=== PATIENT | female | born 1945 | race Asian ===

== ENCOUNTER 2017-01-15 04:26 | Inpatient (IN) | payer OTHER ==
[~2017-01-15] VITALS: Ht 160 cm; Wt 54.5 kg
[2017-01-15 05:36] LABS: CHLORIDE 95 mEq/L (99-109); POTASSIUM 3.5 mEq/L (3.7-5.4); SODIUM 131 mEq/L (136-147)
[2017-01-15 05:37] LABS: GLUCOSE 173 mg/dL (70-99)
[2017-01-15 05:43] LABS: ANION GAP 14 MEQ/L (2-14); GFR ESTIMATE (CALCULATED) > 59 mL/min/; UREA NITROGEN (BUN) 8 mg/dL (9-23)
[2017-01-15 05:45] LABS: HEMATOCRIT 28.3 % (36.0-46.0); MCH 28.6 PG (29.0-34.0); MCHC 33.2 G/DL (30.0-36.0); MEAN PLAT.VOLUME 9.7 uM^3 (9.5-12.4); PLATELET COUNT 461 K/uL (156-360); RBC DIS.WIDTH-CV 12.9 % (11.8-14.6); RBC DIS.WIDTH-SD 40.7 % (39-53); RED BLOOD COUNT 3.29 M/uL (3.80-5.20)
[2017-01-15 05:48] LABS: TROP-I INTERPRETATION NEGATIVE; TROPONIN-I < 0.01 ng/mL (0.0-0.30)
[2017-01-15 05:52] LABS: TOTAL BILIRUBIN 0.5 mg/dL (0.0-1.0)
[2017-01-15 05:53] LABS: ALKALINE PHOSPHATASE 54 IU/L (3-129)
[2017-01-15 05:55] LABS: D-DIMER ELISA 0.38 mg/L FEU (< 0.57)
[2017-01-15 05:56] LABS: DIRECT BILIRUBIN 0.3 mg/dL (0.0-0.3)
[2017-01-15 05:57] LABS: LIPASE 26 U/L (1.0-51.0)
[2017-01-15] MEDS ORDERED: METOPROLOL TART25 MG PO (09:16)
[2017-01-15] MEDS ORDERED: NORVASC2.5 MG PO (09:17)
[2017-01-15] MEDS ORDERED: METFORMIN HCL1000 MG PO (09:18)
[2017-01-15] MEDS ORDERED: METFORMIN HCL500 MG PO (09:19)
[2017-01-15] MEDS ORDERED: ROWEEPRA500 MG PO (09:20)
[2017-01-15] MEDS ORDERED: B-1100 MG PO (09:21)
[2017-01-15] MEDS ORDERED: B-COMPLEX-VITA1 EACH PO (09:23)
[2017-01-15] MEDS ORDERED: PROTONIX40 MG PO (09:24)
[2017-01-15] MEDS ORDERED: CALCIUM 500 MG1 EACH PO (09:25)
[2017-01-15] MEDS ORDERED: ASPIRIN81 M2 PO (09:26)
[2017-01-15] MEDS ORDERED: ATORVASTATIN CA40 MG PO (09:26)
[2017-01-15] MEDS ORDERED: ACID CONTROL150 MG PO (09:27)
[2017-01-15 11:33] LABS: ABSOLUTE RETICULOCYTE CT. 0.1 M/uL (0.02-0.08); IMM.RETIC FRACTION 11.9 % (3-19); RETIC HGB EQUIVALENT 29.4 (28-36); RETICULOCYTE COUNT 2.3 % (0.5-1.8)
[2017-01-15 11:54] LABS: TROP-I INTERPRETATION NEGATIVE; TROPONIN-I < 0.01 ng/mL (0.0-0.30)
[2017-01-15 12:03] LABS: POINT-OF-CARE METER ID UU14100415
[2017-01-15 12:19] LABS: IRON 28 MCG/DL (35-150)
[2017-01-15 12:34] LABS: FERRITIN 14 NG/ML (10-291)
[2017-01-15] MEDS ORDERED: THIAMINE HCL100 MG PO (14:29)
[2017-01-15 15:24] VITALS: BP 174/79
[2017-01-15 17:04] LABS: POINT-OF-CARE METER ID UU13113700
[2017-01-15 17:09] LABS: TROP-I INTERPRETATION NEGATIVE; TROPONIN-I < 0.01 ng/mL (0.0-0.30)
[2017-01-15 18:09] LABS: ADD MIUA? NO; BILIRUBIN NEGATIVE; BLOOD NEGATIVE; COLOR STRAW ((YELLOW)); GLUCOSE (STRIP) 50; KETONES NEGATIVE; LEUKOCYTES NEGATIVE; NITRITE NEGATIVE; PROTEIN (STRIP) NEGATIVE; SPECIFIC GRAVITY 1.003 (1.000-1.030); UCUL ADDED? NO; UROBILINOGEN 0.2 MG/DL (0.2-1.0)
[2017-01-15 20:00] VITALS: BP 124/65
[2017-01-16 00:58] VITALS: BP 141/64
[2017-01-16 04:26] VITALS: BP 133/63
[2017-01-16 06:02] LABS: HEMATOCRIT 28.3 % (36.0-46.0); MCH 28.2 PG (29.0-34.0); MCHC 32.9 G/DL (30.0-36.0); MCV 85.8 FL (83-99); MEAN PLAT.VOLUME 9.7 uM^3 (9.5-12.4); PLATELET COUNT 393 K/uL (156-360); RBC DIS.WIDTH-SD 40.6 % (39-53); WHITE BLOOD COUNT 6.1 K/uL (4.1-10.2)
[2017-01-16 06:25] LABS: ALKALINE PHOSPHATASE 50 IU/L (3-129); ANION GAP 7 MEQ/L (2-14); CHLORIDE 95 MEQ/L (99-109); GFR ESTIMATE (CALCULATED) > 59 mL/min/; GLUCOSE 148 mg/dL (70-99); SAMPLE HEMOLYSIS CHECK 1; SAMPLE ICTERIC CHECK 0; SAMPLE LIPEMIA CHECK 0; SODIUM 130 MEQ/L (136-147); TOTAL BILIRUBIN 0.5 MG/DL (0.0-1.0); UREA NITROGEN (BUN) 7 mg/dL (9-23)
[2017-01-16 06:28] LABS: POTASSIUM 4.6 MEQ/L (3.7-5.4)
[2017-01-16 07:26] LABS: NO-CHARGE AST (GOT) 92 IU/L (15-37); POTASSIUM 4.5 MEQ/L (3.7-5.4)
[2017-01-16 09:34] VITALS: BP 126/59
[2017-01-16 11:14] VITALS: BP 121/57
[2017-01-16 15:37] VITALS: BP 109/57
[2017-01-16 19:00] VITALS: BP 146/82
[2017-01-17 01:11] VITALS: BP 134/64
[2017-01-17 04:00] VITALS: BP 146/75
[2017-01-17 06:10] LABS: ALKALINE PHOSPHATASE 48 IU/L (3-129); ANION GAP 10 MEQ/L (2-14); CHLORIDE 91 MEQ/L (99-109); GFR ESTIMATE (CALCULATED) > 59 mL/min/; GLUCOSE 159 mg/dL (70-99); POTASSIUM 4.3 MEQ/L (3.7-5.4); SAMPLE HEMOLYSIS CHECK 0; SAMPLE ICTERIC CHECK 0; SAMPLE LIPEMIA CHECK 0; SODIUM 125 MEQ/L (136-147); TOTAL BILIRUBIN 0.4 MG/DL (0.0-1.0); UREA NITROGEN (BUN) 10 mg/dL (9-23)
[2017-01-17 08:48] VITALS: BP 127/64
[2017-01-17 10:43] LABS: HBSG INDEX 0.24
[2017-01-17 10:44] LABS: ANTI-HEPATITIS A VIRUS (IGM) Nonreactive; HAV INDEX 0.19
[2017-01-17 10:45] LABS: ANTI-HEPATITIS B CORE (IGM) Nonreactive; HBC IgM INDEX 0.06
[2017-01-17 11:27] LABS: POC NON-PRINT COM 1 ND
[2017-01-17 12:17] LABS: HPCA INDEX 12.85
[2017-01-17 13:03] VITALS: BP 126/60
[2017-01-17 15:05] VITALS: BP 126/60
[2017-01-17 15:05] LABS: ANION GAP 8 MEQ/L (2-14); CHLORIDE 90 MEQ/L (99-109); GFR ESTIMATE (CALCULATED) > 59 mL/min/; POTASSIUM 3.9 MEQ/L (3.7-5.4); SAMPLE HEMOLYSIS CHECK 0; SAMPLE ICTERIC CHECK 0; SAMPLE LIPEMIA CHECK 0; SODIUM 123 MEQ/L (136-147); UREA NITROGEN (BUN) 9 mg/dL (9-23)
[2017-01-17 15:13] LABS: GLUCOSE 271 mg/dL (70-99)
[2017-01-17 17:06] LABS: POINT-OF-CARE METER ID UU13113831
[2017-01-17 21:13] LABS: POINT-OF-CARE METER ID UU13113700
[2017-01-17 22:30] VITALS: BP 145/69
[2017-01-18 03:53] VITALS: BP 160/66
[2017-01-18 08:36] VITALS: BP 117/49
[2017-01-18 09:09] LABS: MCH 28.5 PG (29.0-34.0); MCHC 33.4 G/DL (30.0-36.0); MCV 85.3 FL (83-99); MEAN PLAT.VOLUME 9.9 uM^3 (9.5-12.4); PLATELET COUNT 425 K/uL (156-360); RBC DIS.WIDTH-CV 12.9 % (11.8-14.6); RBC DIS.WIDTH-SD 39.7 % (39-53); WHITE BLOOD COUNT 4.6 K/uL (4.1-10.2)
[2017-01-18 09:41] LABS: ALKALINE PHOSPHATASE 59 IU/L (3-129); ANION GAP 7 MEQ/L (2-14); CHLORIDE 101 MEQ/L (99-109); DIRECT BILIRUBIN 0.2 mg/dL (0.0-0.3); GFR ESTIMATE (CALCULATED) > 59 mL/min/; GLUCOSE 141 mg/dL (70-99); POTASSIUM 4.3 MEQ/L (3.7-5.4); SAMPLE HEMOLYSIS CHECK 0; SAMPLE ICTERIC CHECK 0; SAMPLE LIPEMIA CHECK 0; SODIUM 134 MEQ/L (136-147); TOTAL BILIRUBIN 0.5 MG/DL (0.0-1.0); UREA NITROGEN (BUN) 5 mg/dL (9-23)
[2017-01-18 11:34] LABS: POINT-OF-CARE METER ID UU14174225
[2017-01-18 12:01] VITALS: BP 153/63
[2017-01-18 15:17] LABS: POINT-OF-CARE METER ID UU14188625
[2017-01-18 15:22] VITALS: BP 134/62
[2017-01-18 16:40] LABS: ANION GAP 9 MEQ/L (2-14); CHLORIDE 98 MEQ/L (99-109); GFR ESTIMATE (CALCULATED) > 59 mL/min/; GLUCOSE 138 mg/dL (70-99); SAMPLE HEMOLYSIS CHECK 0; SAMPLE ICTERIC CHECK 0; SAMPLE LIPEMIA CHECK 0; SODIUM 131 MEQ/L (136-147); UREA NITROGEN (BUN) 5 mg/dL (9-23)
[2017-01-18 20:41] VITALS: BP 130/63
[2017-01-19 00:07] VITALS: BP 143/71
[2017-01-19 04:13] VITALS: BP 140/63
[2017-01-19 07:44] VITALS: BP 176/71
[2017-01-19 08:29] LABS: POINT-OF-CARE METER ID UU14188625
[2017-01-19 09:04] LABS: EOSINOPHIL (%) 0.8 % (0-5); HEMATOCRIT 28.7 % (36.0-46.0); IMMATURE GRANULOCYTE (%) 0.4 % (0.0-0.7); INSTRUMENT ABS NEUTROPHIL CT 2.4 K/uL; LYMPHOCYTE COUNT 1.9 K/uL (1.0-2.8); MCH 28.9 PG (29.0-34.0); MCHC 33.8 G/DL (30.0-36.0); MCV 85.4 FL (83-99); MEAN PLAT.VOLUME 9.9 uM^3 (9.5-12.4); MONOCYTE COUNT 0.7 K/uL (0-0.8); NEUTROPHIL (%) 47.6 % (45-76); NEUTROPHIL COUNT 2.4 K/uL (1.8-6.4); PLATELET COUNT 407 K/uL (156-360); RBC DIS.WIDTH-SD 40.5 % (39-53); RED BLOOD COUNT 3.36 M/uL (3.80-5.20); WHITE BLOOD COUNT 5.1 K/uL (4.1-10.2)
[2017-01-19 09:25] LABS: ALKALINE PHOSPHATASE 54 IU/L (3-129); ANION GAP 7 MEQ/L (2-14); CHLORIDE 102 MEQ/L (99-109); GFR ESTIMATE (CALCULATED) > 59 mL/min/; GLOBULINS 3.2 G/DL (2.3-3.5); GLUCOSE 116 mg/dL (70-99); POTASSIUM 3.9 MEQ/L (3.7-5.4); SAMPLE HEMOLYSIS CHECK 0; SAMPLE ICTERIC CHECK 0; SAMPLE LIPEMIA CHECK 0; SODIUM 135 MEQ/L (136-147); TOTAL BILIRUBIN 0.5 MG/DL (0.0-1.0); UREA NITROGEN (BUN) 5 mg/dL (9-23)
[2017-01-19 10:44] LABS: HCV RNA (LOG IU/mL) 6.55 (<1.18)
[2017-01-19 11:34] VITALS: BP 135/68
[2017-01-19 17:01] LABS: POINT-OF-CARE METER ID UU13113694; POINT-OF-CARE USER ID AHSUCAJR
[2017-01-19 18:13] LABS: POINT-OF-CARE METER ID UU13113819
[2017-01-19 20:18] VITALS: BP 143/65
[2017-01-20 01:08] VITALS: BP 131/66
[2017-01-20 04:19] VITALS: BP 136/58
[2017-01-20 08:08] VITALS: BP 148/98
[2017-01-20 11:33] VITALS: BP 140/90
[2017-01-20 12:09] LABS: POINT-OF-CARE METER ID UU14188625
[2017-01-20] MEDS ORDERED: PROTONIX40 MG PO (12:31)
[2017-01-20] MEDS ORDERED: MIRALAX255 GM PO (13:23)
[2017-01-20 14:18] LABS: ALBUMIN 3.01 G/DL (3.6-4.9); ALBUMIN PERCENT 47.7 %; ALPHA-1 GLOBULIN 0.23 G/DL (0.15-0.40); ALPHA-1 PERCENT 3.7 %; ALPHA-2 GLOBULIN 0.76 G/DL (0.45-0.85); ALPHA-2 PERCENT 12.1 %; BETA PERCENT 13.1 %; GAMMA PERCENT 23.4 %
[2017-01-20 14:56] VITALS: BP 140/95
[2017-01-20 16:32] LABS: POINT-OF-CARE METER ID UU14188625
== END 2017-01-20 18:54 | disposition home or self-care (01) | DRG 313 ==
LOC: EME 04:26 → EDBD 08:20 → EDOF 08:20 → 5WEST 08:20 → EDOF 08:20 → 5WEST 15:12 → 5SOUTH 01-17 08:07
PROVIDERS: Hospitalist; Internal Medicine; Internal Medicine Nephrology; Nurse Practitioner Adult Health; Specialist
PROC: 0DB68ZX Excision of Stomach, Via Natural or Artificial Opening Endoscopic, Diagnostic (ICD-10-PCS; principal; 2017-01-19)
DX: R07.89 Other chest pain (principal); K92.1 Melena; E87.1 Hypo-osmolality and hyponatremia; E87.6 Hypokalemia; E78.2 Mixed hyperlipidemia; E11.42 Type 2 diabetes mellitus with diabetic polyneuropathy; D50.0 Iron deficiency anemia secondary to blood loss (chronic); H40.9 Unspecified glaucoma; D47.3 Essential (hemorrhagic) thrombocythemia; E11.39 Type 2 diabetes mellitus with other diabetic ophthalmic complication; I10 Essential (primary) hypertension; I44.7 Left bundle-branch block, unspecified; R79.89 Other specified abnormal findings of blood chemistry; K31.7 Polyp of stomach and duodenum; K29.70 Gastritis, unspecified, without bleeding; K22.4 Dyskinesia of esophagus
CPT/HCPCS: 71020; 74183; 76705; 78452; 80048; 80048 91; 80053; 80076; 81003; 82272; 82607; 82728; 82747 90; 82948; 83540; 83690; 83880; 83930; 83935; 84165; 84295; 84300; 84466; 84484; 84999; 85025; 85027; 85045; 85379; 86705; 86709; 86803; 87340; 87522 90; 87902 90; 88305; 88342 TC; 93005; 93017; 99281; 99285; A9500; G0378; J1650; J1815; J2270; J2785; J7030; J7042

== ENCOUNTER 2017-05-22 08:59 | Inpatient (IN) | payer OTHER ==
[~2017-05-22] VITALS: Ht 147.3 cm; Wt 40.8 kg
[~2017-05-22 08:59] MED LIST: ACID CONTROL150 MG PO; ASPIRIN81 M2 PO; ATORVASTATIN CA40 MG PO; B-1100 MG PO; B-COMPLEX-VITA1 EACH PO; CALCIUM 500 MG1 EACH PO; METFORMIN HCL1000 MG PO; METFORMIN HCL500 MG PO; METOPROLOL TART25 MG PO; MIRALAX255 GM PO; NORVASC2.5 MG PO; PROTONIX40 MG PO; ROWEEPRA500 MG PO; THIAMINE HCL100 MG PO
[2017-05-22 10:17] LABS: HEMATOCRIT 31.9 % (36.0-46.0); MCH 27.1 PG (29.0-34.0); MCHC 33.2 G/DL (30.0-36.0); MCV 81.6 FL (83-99); PLATELET COUNT 337 K/uL (156-360); RBC DIS.WIDTH-CV 15.5 % (11.8-14.6); RBC DIS.WIDTH-SD 46.1 % (39-53); RED BLOOD COUNT 3.91 M/uL (3.80-5.20); WHITE BLOOD COUNT 10.1 K/uL (4.1-10.2)
[2017-05-22 10:29] LABS: CHLORIDE 97 mEq/L (99-109); POTASSIUM 2.9 mEq/L (3.7-5.4); SODIUM 135 mEq/L (136-147)
[2017-05-22 10:31] LABS: GLUCOSE 164 mg/dL (70-99)
[2017-05-22 10:32] LABS: ANION GAP 11 MEQ/L (2-14)
[2017-05-22 10:33] LABS: TOTAL BILIRUBIN 0.8 mg/dL (0.0-1.0)
[2017-05-22 10:35] LABS: ALKALINE PHOSPHATASE 84 IU/L (3-129); GFR ESTIMATE (CALCULATED) > 59 mL/min/
[2017-05-22 10:36] LABS: UREA NITROGEN (BUN) 11 mg/dL (9-23)
[2017-05-22 10:38] LABS: LIPASE 3 U/L (1.0-51.0)
[2017-05-22 12:00] LABS: ADD MIUA? YES; BILIRUBIN NEGATIVE; BLOOD NEGATIVE; COLOR YELLOW ((YELLOW)); GLUCOSE (STRIP) NEGATIVE; KETONES NEGATIVE; LEUKOCYTES NEGATIVE; NITRITE NEGATIVE; PROTEIN (STRIP) 30; SPECIFIC GRAVITY 1.017 (1.000-1.030); UROBILINOGEN 0.2 MG/DL (0.2-1.0)
[2017-05-22 12:04] LABS: BACTERIA NONE SEEN /HPF; EPITHELIAL CELLS RARE /HPF; MUCUS TRACE /LPF; RED BLOOD CELLS 0-5 /HPF (0-5); WHITE BLOOD CELLS 0-5 /HPF (0-5)
[2017-05-22] MEDS ORDERED: AMARYL1 MG PO (14:51)
[2017-05-22] MEDS ORDERED: GLUCOPHAGE1000 MG PO (14:53)
[2017-05-22] MEDS ORDERED: IRON325 M1 PO (14:57)
[2017-05-22 19:36] VITALS: BP 173/77
[2017-05-22 22:29] LABS: POINT-OF-CARE METER ID UU14208753
[2017-05-22 23:58] VITALS: BP 140/67
[2017-05-23 06:47] LABS: POINT-OF-CARE METER ID UU14117124
[2017-05-23 07:36] VITALS: BP 148/76
[2017-05-23 08:34] LABS: MCH 27.5 PG (29.0-34.0); MCHC 33.5 G/DL (30.0-36.0); MEAN PLAT.VOLUME 9.7 uM^3 (9.5-12.4); PLATELET COUNT 320 K/uL (156-360); RBC DIS.WIDTH-CV 15.8 % (11.8-14.6); RBC DIS.WIDTH-SD 47.1 % (39-53); RED BLOOD COUNT 3.78 M/uL (3.80-5.20); WHITE BLOOD COUNT 8.5 K/uL (4.1-10.2)
[2017-05-23 08:54] LABS: ANION GAP 8 MEQ/L (2-14); CHLORIDE 100 MEQ/L (99-109); GFR ESTIMATE (CALCULATED) > 59 mL/min/; GLUCOSE 123 mg/dL (70-99); SAMPLE HEMOLYSIS CHECK 0; SAMPLE ICTERIC CHECK 0; SAMPLE LIPEMIA CHECK 0; SODIUM 134 MEQ/L (136-147); UREA NITROGEN (BUN) 5 mg/dL (9-23)
[2017-05-23 08:56] LABS: POTASSIUM 3.6 MEQ/L (3.7-5.4)
[2017-05-23 11:26] LABS: POINT-OF-CARE METER ID UU14117124
[2017-05-23 15:30] VITALS: BP 141/73
[2017-05-23 16:41] LABS: POINT-OF-CARE METER ID UU14117124
[2017-05-23 21:49] LABS: POINT-OF-CARE METER ID UU14188577
[2017-05-23 23:55] VITALS: BP 160/86
[2017-05-24 06:26] LABS: POINT-OF-CARE METER ID UU14117124
[2017-05-24 06:45] LABS: EOSINOPHIL (%) 0.6 % (0-5); EOSINOPHIL COUNT 0.1 K/uL (0-0.3); HEMATOCRIT 34.2 % (36.0-46.0); IMMATURE GRANULOCYTE (%) 0.2 % (0.0-0.7); INSTRUMENT ABS NEUTROPHIL CT 5.6 K/uL; MCH 28.5 PG (29.0-34.0); MCHC 34.2 G/DL (30.0-36.0); MCV 83.2 FL (83-99); MEAN PLAT.VOLUME 10.2 uM^3 (9.5-12.4); MONOCYTE (%) 11.6 % (3-12); NEUTROPHIL (%) 64.5 % (45-76); NEUTROPHIL COUNT 5.6 K/uL (1.8-6.4); PLATELET COUNT 346 K/uL (156-360); RBC DIS.WIDTH-CV 15.8 % (11.8-14.6); RBC DIS.WIDTH-SD 47.9 % (39-53); RED BLOOD COUNT 4.11 M/uL (3.80-5.20); WHITE BLOOD COUNT 8.7 K/uL (4.1-10.2)
[2017-05-24 07:06] LABS: ANION GAP 8 MEQ/L (2-14); CHLORIDE 102 MEQ/L (99-109); POTASSIUM 4.1 MEQ/L (3.7-5.4); SAMPLE HEMOLYSIS CHECK 0; SAMPLE ICTERIC CHECK 0; SAMPLE LIPEMIA CHECK 0; SODIUM 134 MEQ/L (136-147)
[2017-05-24 07:12] LABS: GFR ESTIMATE (CALCULATED) > 59 mL/min/; GLUCOSE 128 mg/dL (70-99); UREA NITROGEN (BUN) 4 mg/dL (9-23)
[2017-05-24 08:04] VITALS: BP 157/72
[2017-05-24 11:29] LABS: POINT-OF-CARE METER ID UU14188577
[2017-05-24] MEDS ORDERED: COMBIGAN O20 DROP/5 BOTH EYES (12:00)
[2017-05-24] MEDS ORDERED: REFRESH PLUS1 EACH BOTH EYES (12:03)
[2017-05-24 16:43] VITALS: BP 163/77
[2017-05-24 23:42] VITALS: BP 141/88
[2017-05-25 08:34] VITALS: BP 163/76
[2017-05-25 11:21] LABS: POINT-OF-CARE METER ID UU14117124
[2017-05-25 16:31] VITALS: BP 132/62
[2017-05-25 16:33] LABS: POINT-OF-CARE METER ID UU14117124
[2017-05-25 17:24] LABS: HCV RNA (IU/mL) <15 IU/mL (<15)
[2017-05-25 22:10] LABS: POINT-OF-CARE METER ID UU14117124
[2017-05-26 04:10] VITALS: BP 161/77
[2017-05-26 07:04] LABS: GFR ESTIMATE (CALCULATED) > 59 mL/min/
[2017-05-26 07:13] LABS: POINT-OF-CARE METER ID UU14117124
[2017-05-26 07:33] VITALS: BP 164/74
[2017-05-26 08:58] LABS: HEMATOCRIT 30.1 % (36.0-46.0); MCH 27.2 PG (29.0-34.0); MCHC 32.6 G/DL (30.0-36.0); MCV 83.6 FL (83-99); MEAN PLAT.VOLUME 10.7 uM^3 (9.5-12.4); PLATELET COUNT 300 K/uL (156-360); RBC DIS.WIDTH-CV 15.4 % (11.8-14.6); RBC DIS.WIDTH-SD 47.4 % (39-53); WHITE BLOOD COUNT 5.4 K/uL (4.1-10.2)
[2017-05-26 09:02] LABS: ANION GAP 11 MEQ/L (2-14); CHLORIDE 105 MEQ/L (99-109); GLUCOSE 126 mg/dL (70-99); POTASSIUM 3.4 MEQ/L (3.7-5.4); SODIUM 138 MEQ/L (136-147); UREA NITROGEN (BUN) 5 mg/dL (9-23)
[2017-05-26 13:29] LABS: HCV RNA (LOG IU/mL) <1.18 (<1.18)
[2017-05-26 15:52] VITALS: BP 167/80
[2017-05-26 16:44] LABS: POINT-OF-CARE METER ID UU14208753
[2017-05-26 21:48] LABS: POINT-OF-CARE METER ID UU14208753
[2017-05-27 00:29] VITALS: BP 142/64
[2017-05-27 06:23] LABS: POINT-OF-CARE METER ID UU14188577
[2017-05-27 08:10] VITALS: BP 149/70
[2017-05-27 08:10] LABS: HEMATOCRIT 30.9 % (36.0-46.0); MCH 27.8 PG (29.0-34.0); MCV 84.2 FL (83-99); MEAN PLAT.VOLUME 10.2 uM^3 (9.5-12.4); PLATELET COUNT 315 K/uL (156-360); RBC DIS.WIDTH-CV 15.6 % (11.8-14.6); RBC DIS.WIDTH-SD 48.3 % (39-53); RED BLOOD COUNT 3.67 M/uL (3.80-5.20)
[2017-05-27] MEDS ORDERED: KEFLEX500 MG PO (11:52)
[2017-05-27] MEDS ORDERED: BACTRIM,SEPT1 TABLET PO (11:52)
[2017-05-27 11:59] LABS: POINT-OF-CARE METER ID UU14188577
[2017-05-27 15:35] VITALS: BP 139/96
[2017-05-27 16:53] LABS: POINT-OF-CARE METER ID UU14117124
== END 2017-05-27 18:17 | disposition home or self-care (01) | DRG 121 ==
LOC: EME 08:59 → EDOF 15:52 → 3EAST 15:52 → ENRESERV 16:02 → 3EAST 19:10
PROVIDERS: Hospitalist; Internal Medicine; Nurse Practitioner Family; Physician Assistant
DX: H04.329 Acute dacryocystitis of unspecified lacrimal passage (principal); L03.213 Periorbital cellulitis; S52.532A Colles' fracture of left radius, initial encounter for closed fracture; S00.83XA Contusion of other part of head, initial encounter; W01.0XXA Fall on same level from slipping, tripping and stumbling without subsequent striking against object, initial encounter; Y92.009 Unspecified place in unspecified non-institutional (private) residence as the place of occurrence of the external cause; K92.1 Melena; D64.9 Anemia, unspecified; E11.9 Type 2 diabetes mellitus without complications; E87.6 Hypokalemia; I10 Essential (primary) hypertension; E78.5 Hyperlipidemia, unspecified; E78.00 Pure hypercholesterolemia, unspecified; H40.9 Unspecified glaucoma; H71.92 Unspecified cholesteatoma, left ear; H66.92 Otitis media, unspecified, left ear; H91.90 Unspecified hearing loss, unspecified ear; K22.4 Dyskinesia of esophagus; K62.3 Rectal prolapse; Z79.82 Long term (current) use of aspirin; Z79.84 Long term (current) use of oral hypoglycemic drugs; Z90.411 Acquired partial absence of pancreas; Z85.068 Personal history of other malignant neoplasm of small intestine
CPT/HCPCS: 70450; 70486; 73110; 80048; 80048 91; 80053; 80202; 81003; 82272; 82306; 82565; 82607; 82948; 83605; 83690; 85025; 85027; 87040; 87522 90; 87801; 93005; 97530 GO; 99281; 99285; J0690; J1644; J1815; J2543; J3370; J7030; J7050